=== PATIENT | male | born 1990 | race Caucasian/White ===

== ENCOUNTER → 2020-10-06 11:57 | Outpatient (BNVA) | payer OTHER, SELFPAY | PROVIDERS: Visit Provider Family Medicine | DX: Z20.828 Contact with and (suspected) exposure to other viral communicable diseases (principal) | CPT/HCPCS: 87635 ==

== ENCOUNTER 2020-10-10 18:41 | Emergency (ER) | payer OTHER, SELFPAY ==
[2020-10-10] VITALS (7 sets, daily range): BP systolic 111–142; BP diastolic 68–92; PULSE 84–107; RESP 18–24; TEMP 36.7; O2SAT 96–99; BMI 22.4
--- NOTE | 2020-10-10 18:42 | XRR_ITS ---
PROCEDURE INFORMATION: Exam: XR Chest, 1 View Exam date and time: 10/10/2020 6:49 PM Age: 30 years old Clinical indication: Shortness of breath; Additional info: SOB TECHNIQUE: Imaging protocol: XR of the chest Views: 1 view. COMPARISON: No relevant prior studies available. FINDINGS: Lungs: Unremarkable. No consolidation. Pleural space: Unremarkable. No pleural effusion. No pneumothorax. Heart/Mediastinum: Unremarkable. No cardiomegaly. Bones/joints: Unremarkable. XR/XR chest 1V portable [id number] IMPRESSION: No acute findings.
--- NOTE | 2020-10-10 19:00 | ED_ITS ---
HPI - COVID General: Chief Complaint: COVID symptoms Stated Complaint: SOB, covid symptoms Time Seen by Provider: 10/10/20 18:46 Source: patient Mode of arrival: ambulatory Limitations: no limitations Triage information: Has fever, cough or shortness of breath . Exposure to COVID + person last 14 days COVID Results: SARS-CoV-2 RNA (RT-PCR) Pending 10/06/20 12:52 10/06/20 Review of Systems General: Reports: 10 or more systems reviewed and unremarkable except in HPI and below Physical Exam Const: COMMON NORMALS: no acute distress and patient oriented x3 GENERAL APPEARANCE: cooperative HENMT: COMMON NORMALS: normocephalic, TM's normal bilaterally and Normal external nose present HEAD & SCALP: normal to inspection and normocephalic NOSE: Normal external nose present TYMPANIC MEMBRANE: TM's normal bilaterally MOUTH: Normal oral and palatal mucosa present THROAT: posterior oropharynx normal Eye: GENERAL EYE: appearance normal, both eyes and all related structures Neck/C-Spine: COMMON NORMALS: full ROM Lymph: LYMPHATIC: no lymphadenopathy noted Chest: COMMONS NORMALS: normal inspection of the chest Resp: COMMON NORMALS: normal respiratory effort EFFORT & INSPECTION: Yes able to speak in complete sentences Cardio: COMMON NORMALS: regular rate and regular rhythm RATE: regular rate RHYTHM: regular rhythm GI: COMMON NORMALS: non-tender : COMMON NORMALS: Yes no CVA tenderness BLADDER/KIDNEY EXAM: Yes no CVA tenderness Back/Pelvis: COMMON NORMALS: no CVA tenderness and thoracic and lumbar spine normal to inspection Extremity: COMMON NORMALS: normal to inspection Neuro: COMMON NORMALS: patient oriented x3 and moves all extremities Psych: COMMON NORMALS: mental status grossly normal and cooperative Skin: COMMON NORMALS: no rashes or lesions noted GENERAL SKIN EXAM: no rashes or lesions noted Course Vital Signs: Vital signs: Vital Signs Temperature 98.0 F 10/10/20 18:57 Pulse Rate 107 H 10/10/20 18:48 Respiratory Rate 18 10/10/20 18:48 Blood Pressure 142/92 10/10/20 18:48 Pulse Oximetry 99 10/10/20 18:48 MDM - COVID COVID Results: SARS-CoV-2 RNA (RT-PCR) Pending 10/06/20 12:52 10/06/20 Coding Level of Care Code ED Computer Technology Instructor for Geoff Jackson
--- NOTE | 2020-10-10 19:09 | W.ED.COVID ---
HPI - COVID General: Chief Complaint: COVID symptoms Stated Complaint: SOB, covid symptoms Time Seen by Provider: 10/10/20 18:46 Source: patient Mode of arrival: ambulatory Triage information: Has fever, cough or shortness of breath. 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 About 7 days ago he developed body aches, feeling unwell, and subsequently developed loss of taste and smell. His roommate is positive for COVID-19 and he has been tested but results are still pending. He developed shortness of breath today and feels he is really working to breathe. He is therefore here to be evaluated. MD complaint: reported COVID exposure and has COVID symptoms Prior covid testing: yes, results pending at [facility] location Prior testing date: 10/06/20 COVID 19 common symptoms: positive chills, cough, non-productive cough, dyspnea, body aches, loss of sense of smell and/or taste, throat pain and nasal congestion; negative fever(s), productive cough, headache(s), nausea, vomiting or diarrhea COVID 19 other sytmptoms: negative chest pressure, chest pain, pleuritic pain, requiring oxygen, requiring more oxygen, respiratory distress, cyanosis, lethargy, confusion, new neurological complaints or other concerning symptoms Onset (ago): day(s) (7) Severity: moderate Treatment prior to arrival: acetaminophen and ibuprofen COVID Results: SARS-CoV-2 Antigen (Rapid) Positive (Negative) H 10/10/20 19:15 10/10/20 SARS-CoV-2 RNA (RT-PCR) Pending 10/06/20 12:52 10/06/20 Review of Systems General: Reports: 10 or more systems reviewed and unremarkable except in HPI and below Const: Reports: chills and body aches; Denies: fever(s) Eyes: Denies: change in vision or blurry vision ENMT: Reports: throat pain and nasal congestion Card: Denies: chest pain Resp: Reports: dyspnea and non-productive cough; Denies: productive cough GI: Denies: nausea, vomiting or diarrhea : Denies: flank pain, dysuria, urinary frequency, urinary urgency or urinary hesitancy Musc: Denies: neck pain, back pain or extremity swelling Skin/Breast: Denies: rash, pruritus or erythema Neuro: Denies: headache(s) or confusion Endo: Denies: polyuria, polydipsia or tired all the time Physical Exam Const: COMMON NORMALS: no acute distress, average body habitus, patient oriented x3, no limitations, healthy appearing, alert and well nourished HENMT: COMMON NORMALS: normocephalic, atraumatic and moist oral mucous membranes HEAD & SCALP: normocephalic and atraumatic Neck/C-Spine: COMMON NORMALS: no meningeal signs and no JVD Resp: COMMON NORMALS: normal respiratory effort, No retractions, No use of accessory muscles, clear to auscultation bilaterally and percussion normal AUSCULTATION: clear to auscultation bilaterally PERCUSSION: percussion normal Cardio: COMMON NORMALS: no JVD, regular rate, regular rhythm, S1 normal heart sound present, S2 normal heart sound present, No gallops present (Cardio), No clicks present (Cardio), No murmurs present (Cardio), No rub (Cardio) and Peripheral pulses 2+ throughout RATE: regular rate RHYTHM: regular rhythm HEART SOUNDS: S1 normal heart sound present and S2 normal heart sound present PERIPHERAL PULSES: Peripheral pulses 2+ throughout GI: COMMON NORMALS: Normal to inspection, nondistended, normoactive bowel sounds present, Soft to palpation, non-tender, No hepatosplenomegaly present, no masses and no bruits PALPATION: Yes Soft to palpation and Yes No hepatosplenomegaly present Extremity: COMMON NORMALS: normal to inspection, full ROM, capillary refill normal, no calf tenderness and no pedal edema Neuro: COMMON NORMALS: patient oriented x3 SENSORIUM/ORIENTATION: Yes alert MENINGEAL SIGNS: Yes no meningeal signs Skin: COMMON NORMALS: no rashes or lesions noted, no wounds, turgor normal, no jaundice, no petechiae and no mottling GENERAL SKIN EXAM: no rashes or lesions noted and turgor normal Course Reevaluation(s): Reevaluation #1: Discussed his lab and imaging findings with him. He is Covid positive, however his inflammatory markers are all normal. Discussed treatment options with him for example dexamethasone and advised that since his inflammatory markers are not elevated taking steroids may be detrimental. In any case I do not think he will gain much from using steroids. Oxygen saturation is normal and has been normal throughout his stay here has been between 97 and 100 on room air. We will therefore discharge him home with an albuterol inhaler to use as needed. He voiced understanding and is in agreement with the plan. Time: 21:35 Vital Signs: Vital signs: Vital Signs Temperature 98.0 F 10/10/20 18:57 Pulse Rate 84 10/10/20 21:40 Respiratory Rate 18 10/10/20 21:35 Blood Pressure 142/92 10/10/20 18:48 Pulse Oximetry 98 10/10/20 21:35 MDM - COVID MDM Narrative: Medical decision making narrative: 30-year-old gentleman who presented to the emergency department with body aches, chills, shortness of breath. He came in because his shortness of breath was worsening today and he was concerned that he may be getting worse. His roommate had tested positive for COVID-19 so he presumed he had the infection. Evaluation in the emergency department shows he was positive for COVID-19. However all his inflammatory markers were normal. White cell count is also normal. Chest x-ray unremarkable. He is therefore discharged home on conservative measures and is to self isolate for at least 10 days and he is symptom free for 48 hours. He is sent with a pulse oximeter so he can monitor his oxygen saturation at home and if it drops he is to return for evaluation. Medical Records: Attestation: I reviewed the patient's medical records. Lab Data: Attestation: I reviewed the patient's lab results. Labs: Lab Results 10/10/20 10/10/20 10/10/20 Range/Units 19:15 19:15 19:15 WBC 6.8 (4.0-10.0) 10^3/ uL RBC 5.35 H (4.1-5.3) 10^6/u L Hgb 15.6 (11.7-16.6) g/dL Hct 46.1 (42.0-52.0) % MCV 86.2 (80-94) fL MCH 29.2 (28.0-34.0) pg MCHC 33.8 (30.0-36.0) g/dL RDW 11.4 L (12.1-15.1) % Plt Count 206 (130-400) 10^3/c mm MPV 10.1 (7.4-10.4) fL Neut % (Auto) 68.8 % Lymph % (Auto) 22.8 % [place] % (Auto) 6.5 % Eos % (Auto) 1.5 % Baso % (Auto) 0.3 % Neut # (Auto) 4.69 (1.8-7.7) 10^3/u L Lymph # (Auto) 1.6 (0.8-4.8) 10^3/u L [place] # (Auto) 0.4 (0.2-0.9) 10^3/u L Eos # (Auto) 0.1 (0.0-0.8) 10^3/u L Baso # (Auto) 0.0 (0.0-0.1) 10^3/u L Nucleated RBC % (a uto) 0 % Nucleated RBCs # 0.0 /100WBC D-Dimer <= 0.27 (0-0.59) ug/mIFE U Sodium 140 (136-145) mmol/L Potassium 3.6 (3.5-5.1) mmol/L Chloride 104 (98-107) mmol/L Carbon Dioxide 24 (22-29) mmol/L Anion Gap 16.6 (5-19) BUN 15 (6-20) mg/dL Creatinine 0.9 (0.7-1.2) mg/dL GFR Calculation 99.1 (90-130) mL/min Glucose 113 (65-115) mg/dL Calculated Osmolal ity 292 (285-295) mOsm/k g Lactic Acid (0.5-2.2) mmol/L Calcium 9.1 (8.5-10.5) mg/dL Ferritin 290 (30-400) ng/mL Total Bilirubin 0.3 (0.15-1.2) mg/dL AST 24 (0-40) U/L ALT 29 (0-41) U/L Alkaline Phosphata se 65 (40-130) IU/L Creatine Kinase 56 (39-308) U/L C-Reactive Protein 0.3 (0.0-4.9) mg/L Total Protein 7.2 (6.6-8.7) g/dL Albumin 4.7 (3.5-5.2) g/dL Globulin 2.5 (1.3-4.6) g/dL Procalcitonin 0.03 (0-0.5) ng/mL Influenza Type A A g (Negative) Influenza Type B A g (Negative) SARS-CoV-2 Ag (Rap id) (Negative) 10/10/20 10/10/20 10/10/20 Range/Units 19:15 19:15 19:15 WBC (4.0-10.0) 10^3/ uL RBC (4.1-5.3) 10^6/u L Hgb (11.7-16.6) g/dL Hct (42.0-52.0) % MCV (80-94) fL MCH (28.0-34.0) pg MCHC (30.0-36.0) g/dL RDW (12.1-15.1) % Plt Count (130-400) 10^3/c mm MPV (7.4-10.4) fL Neut % (Auto) % Lymph % (Auto) % [place] % (Auto) % Eos % (Auto) % Baso % (Auto) % Neut # (Auto) (1.8-7.7) 10^3/u L Lymph # (Auto) (0.8-4.8) 10^3/u L [place] # (Auto) (0.2-0.9) 10^3/u L Eos # (Auto) (0.0-0.8) 10^3/u L Baso # (Auto) (0.0-0.1) 10^3/u L Nucleated RBC % (a uto) % Nucleated RBCs # /100WBC D-Dimer (0-0.59) ug/mIFE U Sodium (136-145) mmol/L Potassium (3.5-5.1) mmol/L Chloride (98-107) mmol/L Carbon Dioxide (22-29) mmol/L Anion Gap (5-19) BUN (6-20) mg/dL Creatinine (0.7-1.2) mg/dL GFR Calculation (90-130) mL/min Glucose (65-115) mg/dL Calculated Osmolal ity (285-295) mOsm/k g Lactic Acid 1.2 (0.5-2.2) mmol/L Calcium (8.5-10.5) mg/dL Ferritin (30-400) ng/mL Total Bilirubin (0.15-1.2) mg/dL AST (0-40) U/L ALT (0-41) U/L Alkaline Phosphata se (40-130) IU/L Creatine Kinase (39-308) U/L C-Reactive Protein (0.0-4.9) mg/L Total Protein (6.6-8.7) g/dL Albumin (3.5-5.2) g/dL Globulin (1.3-4.6) g/dL Procalcitonin (0-0.5) ng/mL Influenza Type A A g Negative (Negative) Influenza Type B A g Negative (Negative) SARS-CoV-2 Ag (Rap id) Positive H (Negative) Imaging Data: CXR: Attestation: I personally reviewed and interpreted this imaging study as follows: Radiologist's impression: [address] [address] XRay Report Signed Patient: Kaushal Brown #: [id number] : 1990Acct#:[id number] Age/Sex: 30 / MADM Date: 10/10/20 Loc: [facility]/Bed: Attending Dr: Ordering Provider/Ordering MD: Vish Miranda MD Date of Service: 10/10/20 Procedure(s): XR chest 1V portable [id number] Accession Number(s): [id number] Report Number: [id number] PROCEDURE INFORMATION: Exam: XR Chest, 1 View Exam date and time: 10/10/2020 6:49 PM Age: 30 years old Clinical indication: Shortness of breath; Additional info: SOB TECHNIQUE: Imaging protocol: XR of the chest Views: 1 view. COMPARISON: No relevant prior studies available. FINDINGS: Lungs: Unremarkable. No consolidation. Pleural space: Unremarkable. No pleural effusion. No pneumothorax. Heart/Mediastinum: Unremarkable. No cardiomegaly. Bones/joints: Unremarkable. XR/XR chest 1V portable [id number] IMPRESSION: No acute findings. COVID Results: SARS-CoV-2 Antigen (Rapid) Positive (Negative) H 10/10/20 19:15 10/10/20 SARS-CoV-2 RNA (RT-PCR) Pending 10/06/20 12:52 10/06/20 Discharge Plan Discharge Patient Disposition: Home Clinical Impression: COVID-19, Acute viral syndrome Condition: Stable Prescriptions: Continued Tylenol 325 mg Tablet 325 mg PO QID PRN (Reason: pain/fever) RF: 0 pantoprazole 40 mg tablet,delayed release (DR/EC) 40 mg PO DAILY RF: 0 Discharge Orders: Discharge Order (Routine); Ordered 10/10/20 Ordered By: Chante Dickinson Discharge Diet: Usual diet Discharge Activity: Increase activity as tolerated Patient Instructions: Viral Syndrome (ED) Activity Restrictions/Additional Instructions: Return for any new or worsening symptoms. Take Tylenol or ibuprofen as needed for fever or pain. You need to self isolate for at least 10 days after symptoms started and be symptom-free for at least 48 hours not taking any medicine to reduce your fever or pain. Monitor your pulse oximetry readings and if your oxygen levels drop below 92% please return to the emergency department for evaluation. Follow-up with your primary care provider within 3 days. Coding Level of Care Code ED Regulatory Affairs Specialist for Julian Fwd Exam Comprehensive
[2020-10-10 19:44] LABS: Basophils % 0.3 %; Eosinophils # 0.1 10^3/uL (0.0-0.8); Eosinophils % 1.5 %; Hematocrit 46.1 % (42.0-52.0); Hemoglobin 15.6 g/dL (11.7-16.6); Lymphocytes # 1.6 10^3/uL (0.8-4.8); Lymphocytes % 22.8 %; Mean Corpuscular HGB Conc 33.8 g/dL (30.0-36.0); Mean Corpuscular Hemoglobin 29.2 pg (28.0-34.0); Mean Corpuscular Volume 86.2 fL (80-94); Mean Platelet Volume 10.1 fL (7.4-10.4); Monocytes # 0.4 10^3/uL (0.2-0.9); Monocytes % 6.5 %; Neutrophils # 4.69 10^3/uL (1.8-7.7); Neutrophils % 68.8 %; Nucleated Red Blood Cells % 0 %; Platelet Count 206 10^3/cmm (130-400); Red Blood Count 5.35 10^6/uL (4.1-5.3); Red Cell Distribution Width 11.4 % (12.1-15.1); White Blood Count 6.8 10^3/uL (4.0-10.0)
[2020-10-10 19:58] LABS: D Dimer <= 0.27 ug/mIFEU (0-0.59)
[2020-10-10 20:04] LABS: Alanine Aminotransferase 29 U/L (0-41); Albumin Level 4.7 g/dL (3.5-5.2); Alkaline Phosphatase 65 IU/L (40-130); Aspartate Amino Transferase 24 U/L (0-40); Blood Urea Nitrogen 15 mg/dL (6-20); C Reactive Protein 0.3 mg/L (0.0-4.9); Calcium 9.1 mg/dL (8.5-10.5); Carbon Dioxide 24 mmol/L (22-29); Chloride 104 mmol/L (98-107); Creatine Phosphokinase 56 U/L (39-308); Globulin 2.5 g/dL (1.3-4.6); Glomerular Filtration Rate 99.1 mL/min (90-130); Glucose 113 mg/dL (65-115); Osmolality Calculated 292 mOsm/kg (285-295); Sodium 140 mmol/L (136-145); Total Bilirubin 0.3 mg/dL (0.15-1.2); Total Protein 7.2 g/dL (6.6-8.7)
[2020-10-10 20:07] LABS: Influenza A by IFA Negative (Negative); Influenza B by IFA Negative (Negative); SARS Covid-2 Antigen Positive (Negative)
[2020-10-10 20:30] LABS: Lactic Sepsis W/Reflex 1.2 mmol/L (0.5-2.2)
[2020-10-10 20:48] LABS: Procalcitonin 0.03 ng/mL (0-0.5)
[2020-10-10 20:59] LABS: Ferritin 290 ng/mL (30-400)
[2020-10-10 21:01] LABS: Anion Gap 16.6 (5-19); Potassium 3.6 mmol/L (3.5-5.1)
[2020-10-10] MEDS: albuterol 8 gm MDI 4 PUFF INHALATION (21:35)
--- NOTE | 2020-10-10 22:17 | PC.NURSE ---
agree with this assessment
== END 2020-10-10 22:17 | disposition home or self-care (01) ==
PROVIDERS: Nurse Practitioner Family; Emergency Provider Family Medicine
DX: U07.1 COVID-19 (principal)
CPT/HCPCS: 12345; 36415; 71045; 80053; 82550; 82728; 83605; 84145; 85025; 85378; 86140; 87426; 87804; 94640; 99282; 99283; J3535

== ENCOUNTER → 2022-07-08 10:39 | Outpatient (BNVA) | payer OTHER, SELFPAY | PROVIDERS: PCP Family Medicine; Visit Provider Family Medicine | DX: K29.70 Gastritis, unspecified, without bleeding (principal); R53.83 Other fatigue; R10.9 Unspecified abdominal pain | CPT/HCPCS: 80053; 80061; 82607; 83690; 83880; 84403; 84443; 85025; 86140; 86618; 86666; 86757 ==

== ENCOUNTER → 2023-09-08 11:16 | Outpatient (BNVA) | payer OTHER, SELFPAY | PROVIDERS: PCP Family Medicine; Visit Provider Registered Nurse Neonatal Intensive Care | DX: R39.9 Unspecified symptoms and signs involving the genitourinary system (principal); Z20.2 Contact with and (suspected) exposure to infections with a predominantly sexual mode of transmission; R30.0 Dysuria | CPT/HCPCS: 81000; 87086; 87491; 87591 ==

== ENCOUNTER 2024-08-18 17:01 | Emergency (ER) | payer OTHER, SELFPAY ==
[2024-08-18] VITALS (8 sets, daily range): BP systolic 123–150; BP diastolic 71–91; PULSE 92–102; RESP 15–20; O2SAT 94–97; BMI 24.3
--- NOTE | 2024-08-18 17:16 | ED_ITS ---
Documented by User: Ben Davidson DO 08/20/24 17:39 HPI - General Adult General: Chief complaint: Allergic Reaction Stated complaint: mult wasp stings Time Seen by Provider: 08/18/24 17:10 History of Present Illness: 34-year-old male presents to the emergen cy room after being stung by wasp. He has hives. He was given Benadryl and route he is feeling much better he felt like he almost passed out initially when this happened. No previous allergic reactions similar to this. No difficulty breathing or wheezing at this time. Associated symptoms: Deny chest pain, dyspnea or rash Related Data Previous Rx's Medication Instructions Recorded pantoprazole 40 mg tablet,delayed See Rx Instructions .Route 06/20/23 release .COMPLEX #60 tabs ciprofloxacin HCl 500 mg tablet 500 mg PO BID 7 days #14 tabs 09/08/23 epinephrine 0.3 mg/0.3 mL 0.3 mg (0.3 mL) IM Q10M PRN 08/18/24 injection, auto-injector (EpiPen hypersensitivity reaction #2 ea 2-Savage) methylprednisolone 4 mg tablets in See Rx Instructions PO .COMPLEX 08/18/24 a dose pack (Medrol (Savage)) #21 ea Allergies Allergy/AdvReac Type Severity Reaction Status Date / Time codeine Allergy Unknown Verified 08/18/24 17:17 diphenhydramine Allergy Unknown Verified 08/18/24 17:17 [From Benadryl] Review of Systems Const: Denies: fever(s) or chills Card: Denies: chest pain Resp: Denies: dyspnea GI: Denies: abdominal pain : Denies: dysuria, urinary frequency or urinary urgency Musc: Denies: neck pain or back pain Skin/Breast: Denies: rash Physical Exam Const: COMMON NORMALS: no acute distress GENERAL APPEARANCE: cooperative and comfortable ORIENTATION/CONSCIOUSNESS: Yes awake, Yes oriented to person, Yes oriented to place and Yes oriented to time HENMT: COMMON NORMALS: normocephalic, atraumatic and hearing grossly normal bilaterally HEAD & SCALP: normocephalic and atraumatic Resp: COMMON NORMALS: normal respiratory effort, No retractions, No use of accessory muscles and clear to auscultation bilaterally AUSCULTATION: clear to auscultation bilaterally Cardio: COMMON NORMALS: regular rate, regular rhythm and No murmurs present (Cardio) RATE: regular rate RHYTHM: regular rhythm GI: COMMON NORMALS: Soft to palpation and No hepatosplenomegaly present AUSCULTATION: Yes normoactive bowel sounds PALPATION: Yes Soft to palpation, No Tenderness to palpation present (GI), No Guarding due to palpation present (GI) and Yes No hepatosplenomegaly present Extremity: COMMON NORMALS: normal to inspection, capillary refill normal, no clubbing, cyanosis or edema, no calf tenderness and no pedal edema Neuro: SENSORIUM/ORIENTATION: Yes oriented to person, Yes oriented to place and Yes oriented to time Skin: OTHER: Mild urticarial rash on the trunk and proximal extremities Course Vital Signs: Vital signs: Vital Signs Pulse Rate 101 H 08/18/24 20:29 Respiratory Rate 20 H 08/18/24 19:39 Blood Pressure 123/72 08/18/24 20:29 Pulse Oximetry 95 08/18/24 20:29 Oxygen Delivery Me thod Room Air 08/18/24 17:34 MDM - General Adult Medical Decision Making Care signed out to Dr. Tavarez at change of shift. See final notes for diagnosis and disposition. Discharge Plan Discharge Patient Disposition: Home Clinical Impression: Wasp sting, Anaphylactoid reaction Condition: Stable Prescriptions: New epinephrine [EpiPen 2-Savage] 0.3 mg/0.3 mL auto-injector 0.3 mg IM Q10M PRN (Reason: hypersensitivity reaction) Qty: 2 0RF Rx Instructions: for 2 doses methylprednisolone [Medrol (Savage)] 4 mg tablets,dose pack See Rx Instructions .ROUTE .COMPLEX Qty: 21 0RF Rx Instructions: orally per package directions No Action ciprofloxacin HCl 500 mg tablet 500 mg PO BID 7 Days Qty: 14 0RF pantoprazole 40 mg tablet,delayed release (DR/EC) See Rx Instructions .ROUTE .COMPLEX Qty: 60 11RF Dose Instruction: Take 1 tablet by mouth twice daily Rx Instructions: Take 1 tablet by mouth twice daily Discharge Orders: Discharge ED (Routine); Ordered 08/18/24 Ordered By: Gaston Tavarez Referrals: Isra Ivy MD [Primary Care Provider] - 1-3 days Patient Instructions: Anaphylaxis (ED), Opioid Safety, Pain Management Activity Restrictions/Additional Instructions: EpiPen as directed for similar situations. You may take methylprednisolone tomorrow, if you are not feeling back to normal. Return for any return of symptoms such as syncope or passing out, vomiting, diarrhea, shortness of breath, facial swelling, any other concerns. See your doctor next week. Coding Level of Care Code ED Field Traffic Investigator for Geoffg Fwd Documented by User: Gaston Tavarez, DO 08/18/24 20:50 HPI - General Adult General: Chief complaint: Allergic Reaction Stated complaint: mult wasp stings Time Seen by Provider: 08/18/24 17:10 Related Data Previous Rx's Medication Instructions Recorded pantoprazole 40 mg tablet,delayed See Rx Instructions .Route 06/20/23 release .COMPLEX #60 tabs ciprofloxacin HCl 500 mg tablet 500 mg PO BID 7 days #14 tabs 09/08/23 epinephrine 0.3 mg/0.3 mL 0.3 mg (0.3 mL) IM Q10M PRN 08/18/24 injection, auto-injector (EpiPen hypersensitivity reaction #2 ea 2-Savage) methylprednisolone 4 mg tablets in See Rx Instructions PO .COMPLEX 08/18/24 a dose pack (Medrol (Savage)) #21 ea Allergies Allergy/AdvReac Type Severity Reaction Status Date / Time codeine Allergy Unknown Verified 08/18/24 17:17 diphenhydramine Allergy Unknown Verified 08/18/24 17:17 [From Benadryl] Course Vital Signs: Vital signs: Vital Signs Pulse Rate 101 H 08/18/24 20:29 Respiratory Rate 20 H 08/18/24 19:39 Blood Pressure 123/72 08/18/24 20:29 Pulse Oximetry 95 08/18/24 20:29 Oxygen Delivery Me thod Room Air 08/18/24 17:34 MDM - General Adult Medical Decision Making Care signed out to Dr. Tavarez at change of shift. See final notes for diagnosis and disposition. Patient received steroids, Benadryl, 1 L of fluid, Zofran. He is feeling much better. He is walked around the ER without any recurrence of symptoms. He will be discharged. EpiPen prescribed. 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 He will see his doctor next week. He will return for any return of symptoms. No radiology studies performed this visit Discharge Plan Discharge Patient Disposition: Home Clinical Impression: Wasp sting, Anaphylactoid reaction Condition: Stable Prescriptions: New epinephrine [EpiPen 2-Savage] 0.3 mg/0.3 mL auto-injector 0.3 mg IM Q10M PRN (Reason: hypersensitivity reaction) Qty: 2 0RF Rx Instructions: for 2 doses methylprednisolone [Medrol (Savage)] 4 mg tablets,dose pack See Rx Instructions .ROUTE .COMPLEX Qty: 21 0RF Rx Instructions: orally per package directions No Action ciprofloxacin HCl 500 mg tablet 500 mg PO BID 7 Days Qty: 14 0RF pantoprazole 40 mg tablet,delayed release (DR/EC) See Rx Instructions .ROUTE .COMPLEX Qty: 60 11RF Dose Instruction: Take 1 tablet by mouth twice daily Rx Instructions: Take 1 tablet by mouth twice daily Discharge Orders: Discharge ED (Routine); Ordered 08/18/24 Ordered By: Gaston Tavarez Referrals: Isra Ivy MD [Primary Care Provider] - 1-3 days Patient Instructions: Anaphylaxis (ED), Opioid Safety, Pain Management Activity Restrictions/Additional Instructions: EpiPen as directed for similar situations. You may take methylprednisolone tomorrow, if you are not feeling back to normal. Return for any return of symptoms such as syncope or passing out, vomiting, diarrhea, shortness of breath, facial swelling, any other concerns. See your doctor next week. Coding Level of Care Code ED Field Traffic Investigator for Julian Paz
[2024-08-18] MEDS: diphenhydrAMINE 50 mg/mL SDV 1mL 25 MG IVP (17:28)
[2024-08-18] MEDS: methylPREDNISolone sod succ 125 mg/2 mL INJ IVP (17:30)
[2024-08-18] MEDS: famotidine 20 mg/2 mL INJ 40 MG IVP (17:30)
--- NOTE | 2024-08-18 17:39 | PC.NURSE ---
pt placed on hall monitor, suction available at bedside, pt given call light/x2 warm blankets. pt denies any further needs at this time.
[2024-08-18] MEDS: sodium chloride 0.9% 1,000 ML 999 ML IV (18:29)
--- NOTE | 2024-08-18 18:42 | PC.NURSE ---
Received report from Faina ANDERSON at shift change.
--- NOTE | 2024-08-18 18:44 | PC.NURSE ---
Informed per Faina ANDERSON that patient declined zofran when ordered, but order is still non-administered in case patient requests or needs Zofran at a later time.
--- NOTE | 2024-08-18 19:38 | PC.NURSE ---
All pharmacies in local area currently closed. Patient requested an Epipen to go home with; Dr Tavarez informed. automation and controls supervisor Mary to go to pharmacy to determine if she can find Epipen for patient to go home with.
[2024-08-18] MEDS: EPINEPHrine 1 mg/mL INJ 0.3 MG IM (20:02)
--- NOTE | 2024-08-18 20:03 | PC.NURSE ---
ovens supervisor Mary was unable to locate any Epipen in [facility] pharmacy. Dr Tavarez put in order for vial of Epinephrine and vial was sent home with patient to self-administer in case of allergic reaction. Patient was educated on dosage to use, had no questions or concerns, and verbalized understanding. Vial sent home/witnessed by Lizy ANDERSON.
== END 2024-08-18 19:58 | disposition home or self-care (01) ==
PROVIDERS: Emergency Provider Emergency Medicine; PCP Family Medicine
DX: T78.2XXA Anaphylactic shock, unspecified, initial encounter (principal); T63.461A Toxic effect of venom of wasps, accidental (unintentional), initial encounter; X58.XXXA Exposure to other specified factors, initial encounter
CPT/HCPCS: 96374; 96375; 99284; J0171; J1200; J2919; J3490; J7030

== ENCOUNTER 2025-10-14 20:07 | Outpatient (CLI) | payer BC, SELFPAY | END 2025-10-14 20:08 | disposition home or self-care (01) | LOC: SLEEP 20:08 | PROVIDERS: PCP Family Medicine; Referring Provider Specialist; Visit Provider Internal Medicine Pulmonary Disease | DX: G47.33 Obstructive sleep apnea (adult) (pediatric) (principal); G47.19 Other hypersomnia | CPT/HCPCS: 95810 ==